=== PATIENT | male | born 1975 | race Caucasian/White ===

== ENCOUNTER 2016-11-06 12:35 | Emergency (ER) | payer SELFPAY ==
[~2016-11-06] VITALS: Ht 165.1 cm; Wt 68.0 kg
[2016-11-06 12:45] VITALS: BP 122/69
--- NOTE | 2016-11-06 16:51 | NUR ---
Patient to bed OF2.
--- NOTE | 2016-11-06 17:01 | NUR ---
BRENDA Loredo evaluating patient.
--- NOTE | 2016-11-06 17:05 | NUR ---
PATIENT PRESENTS TO ED WITH C/O FEVER AND BODY ACHES X2 WEEKS . DENIES N/V/D; SKIN IS PINK/WARM/DRY; AAOX4 WITH EVEN AND STEADY GAIT; LUNGS CLEAR BL; HR EVEN AND REGULAR; PT DENIES ANY CP, SOB, OR COUGH AT THIS TIME; PATIENT STATES PAIN OF 10/10 AT THIS TIME; VSS; PATIENT POSITIONED FOR COMFORT ON CHAIR IN OVERFLOW W/SPOUSE CHAIRSIDE. M.D. AWARE OF STATUS.
[2016-11-06] MEDS ORDERED: ACETAMIN/CODEINE 120/12MG-5ML 5 ML UDC PO ONE (17:25)
--- NOTE | 2016-11-06 17:46 | NUR ---
Patient going to XRAY via wheelchair per tech.
--- NOTE | 2016-11-06 18:08 | NUR ---
Patient to bed 06.
--- NOTE | 2016-11-06 18:29 | NUR ---
20G TO LAC. IV PATENT AND INTACT. CT CONSENTS SIGNED BY PT.
[2016-11-06 18:43] LABS: CARBON DIOXIDE 27.3 mmol/L (21-32); CREATININE 1.1 mg/dL (0.6-1.3); POTASSIUM 3.3 mmol/L (3.5-5.1)
--- NOTE | 2016-11-06 20:37 | NUR ---
Patient discharged with v/s stable. Written and verbal after care instructions given and explained. Patient alert, oriented and verbalized understanding of instructions. Ambulatory with steady gait. All questions addressed prior to discharge. ID band removed. Patient advised to follow up with PMD. Rx of GUAIATUSSIN given. Patient educated on indication of medication including possible reaction and side effects. Opportunity to ask questions provided and answered.
[2016-11-06 20:53] VITALS: BP 123/73
== END 2016-11-06 20:53 | disposition home or self-care (01) ==
LOC: MED 12:35
DX: J40 Bronchitis, not specified as acute or chronic (principal); B34.9 Viral infection, unspecified; R07.89 Other chest pain
CPT/HCPCS: 36415; 71020; 71275; 80048; 85379; 87804; 93005; 99285; Q9967